=== PATIENT | male | born 2000 | race Hispanic/Latino ===

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

== ENCOUNTER 2025-08-28 10:36 | Emergency (ER) | payer BC, OTHER, SELFPAY | END 2025-08-28 11:16 | disposition home or self-care (01) | LOC: NAV ERS 10:36 | DX: S80.862A Insect bite (nonvenomous), left lower leg, initial encounter (principal); S80.861A Insect bite (nonvenomous), right lower leg, initial encounter; W57.XXXA Bitten or stung by nonvenomous insect and other nonvenomous arthropods, initial encounter | CPT/HCPCS: 99283 ==